=== PATIENT | female | born 1975 | race Caucasian/White ===

== ENCOUNTER 2021-02-23 22:48 | Emergency (ER) | payer OTHER ==
[~2021-02-23 22:48] MED LIST: ADMELOG100 UNIT/1 SC; ANTIVERT 25MG T25 MG PO; BASAGLAR K100 UNIT/1 SC; BENTYL 20MG TAB20 MG PO; CITRATE OF MAG296 ML PO; CLARITIN10 MG PO; COZAAR100 MG PO; CRESTOR20 MG PO; DULCOLAX5 MG PO; FISH OIL 1,0001 EAC5 PO; FOLIC ACID 1 MG1 MG PO; GLIPIZIDE ER5 MG PO; JANUMET 50-1,01 EACH PO; JANUMET XR 1001 EACH PO; LORTAB 5-325 M1 EACH PO; SYNTHROID125 MCG PO; TREXALL10 MG PO; VITAMIN D250000 UNIT PO; ZESTORETIC 20-1 EACH PO; ZOFRAN ODT 4 MG4 MG PO; ZOFRAN ODT 4 MG4 MG SL
== END 2021-02-24 01:07 | disposition left against medical advice (07) ==
LOC: ER1 22:48
DX: Z53.21 Procedure and treatment not carried out due to patient leaving prior to being seen by health care provider (principal)

== ENCOUNTER 2021-02-26 18:50 | Emergency (ER) | payer OTHER ==
[2021-02-26 21:34] LABS: HEMOGLOBIN 12.7 gm/dl (12.3-15.3); RED BLOOD COUNT 4.55 M/UL (4.00-5.10); WHITE BLOOD COUNT 12.2 K/UL (4.5-11.0)
[2021-02-26 21:59] LABS: BUN/CREATININE RATIO 12 (0-10)
[2021-02-27] MEDS ORDERED: VALIUM5 MG PO (01:13)
[2021-02-27] MEDS ORDERED: MECLIZINE HCL25 MG PO (01:17)
== END 2021-02-27 01:40 | disposition home or self-care (01) ==
LOC: ER1 18:50
PROVIDERS: Physician Assistant
DX: H81.10 Benign paroxysmal vertigo, unspecified ear (principal); E11.9 Type 2 diabetes mellitus without complications; I10 Essential (primary) hypertension; E78.5 Hyperlipidemia, unspecified; E03.9 Hypothyroidism, unspecified; Z88.1 Allergy status to other antibiotic agents; Z79.899 Other long term (current) drug therapy
CPT/HCPCS: 80053; 82550; 82553; 82962; 83874; 84484; 85025; 99284